=== PATIENT | male | born 1950 | race Caucasian/White ===

== ENCOUNTER 2019-07-07 09:54 | Day surgery (SDC) | payer OTHER ==
[~2019-07-07] VITALS: Ht 182.9 cm; Wt 104.3 kg
[~2019-07-07 09:54] MED LIST: CIPROFLOXACIN 0.3% OPHTH SOLUTION 5ML BOTTLE. OD ONE; LIDOCAINE 2% JELLY 6ML IN APPLICATOR. OD ONE; PROPARACAINE 0.5% OPHTH SOLUTION 15ML BOTTLE. OD ONE
[2019-07-07] MEDS: CYCLOPENTOLATE 1% OPTH SOLUTION 2ML BOTTLE. OD SCH ×3 (10:55→11:05)
[2019-07-07] MEDS: PHENYLEPHRINE 10% OPHTH SOLUTION 5ML BOTTLE. OD SCH ×3 (10:55→11:05)
[2019-07-07] MEDS ORDERED: IV RINGERS,LACTATED 1000ML 1,000 ML IV SCH ×2 (11:00→11:54)
[2019-07-07] MEDS ORDERED: MIDAZOLAM HCL/PF 2 MG/2 ML VIAL. ONE (11:34)
[2019-07-07] MEDS ORDERED: BACITRACIN/POLYMYXIN B OPHTH OINTMENT 3.5GM TUBE. ONE (11:38)
[2019-07-07] MEDS ORDERED: CHONDROITIN-SOD-HYALURONATE 0.5 ML DISP.SYRIN. ONE (11:38)
[2019-07-07] MEDS ORDERED: CHONDROIT-SOD-HYALURONATE KIT. ONE (11:38)
[2019-07-07] MEDS ORDERED: LIDOCAINE 1% PF 2 ML VIAL. ONE (11:38)
[2019-07-07] MEDS ORDERED: MORPHINE SULFATE 2 MG/ML VIAL. IV PRN (12:00)
[2019-07-07] MEDS ORDERED: PROCHLORPERAZINE 10 MG/2 ML VIAL. IV PRN (12:00)
[2019-07-07] MEDS ORDERED: HYDROmorphone 2 MG/ML VIAL IV PRN (12:00)
[2019-07-07] MEDS ORDERED: ONDANSETRON PF 4 MG/2 ML VIAL. IV PRN (12:00)
[2019-07-07] MEDS ORDERED: LIDOCAINE 1% PF 2 ML VIAL. ID PRN (12:00)
[2019-07-07] MEDS ORDERED: fentaNYL PF VIAL 100 MCG/2 ML VIAL IV PRN ×2 (12:00)
[2019-07-07 12:57] VITALS: BP 148/88
--- NOTE | 2019-07-07 13:22 | OP ---
DATE OF SURGERY: 07/07/2019 PREOPERATIVE DIAGNOSIS: Cataract of the right eye. PROCEDURE: Phacoemulsification with posterior chamber intraocular lens implantation of the right eye. SURGEON: Berenice Her MD ANESTHESIA: Topical with monitored anesthesia care. DESCRIPTION OF PROCEDURE: The right eye was prepped with Betadine in the usual sterile fashion and draped. A paracentesis was performed followed by instillation of preservative-free lidocaine admixed with balanced salt solution and phenylephrine. Viscoat was injected in the anterior chamber and a temporal clear corneal incision was made. A capsulorrhexis was performed followed by hydrodissection. The phacoemulsification handpiece was used to remove the nucleus in a modified stop and chop fashion. The I/A handpiece was used to remove the remainder of the cortex. Viscoelastic was injected in the anterior chamber and an Kel, model SN60WF with a power of 20.5 diopters was placed into the capsular bag. Balanced salt solution was used to hydrate the corneal wounds and the viscoelastic evacuated with the I/A handpiece. Once no leak was noted, Maxitrol was placed on the eye and the eye shielded and the patient was sent to the recovery room uneventfully. BERENICE HER MD DR: MARIA T/shreya JOB#: [id number] / [id number]
== END 2019-07-07 13:18 | disposition home or self-care (01) ==
LOC: SURG 09:54
PROVIDERS: ATTEND Ophthalmology
DX: H25.9 Unspecified age-related cataract (principal); I10 Essential (primary) hypertension; E78.00 Pure hypercholesterolemia, unspecified; E11.9 Type 2 diabetes mellitus without complications; E66.9 Obesity, unspecified; Z68.31 Body mass index [BMI] 31.0-31.9, adult; Z86.010 Personal history of colon polyps; Z87.39 Personal history of other diseases of the musculoskeletal system and connective tissue; Z96.1 Presence of intraocular lens; Z98.41 Cataract extraction status, right eye; Z98.52 Vasectomy status; Z72.89 Other problems related to lifestyle; Z79.84 Long term (current) use of oral hypoglycemic drugs
CPT/HCPCS: 66984; 82962; C1780; J0171; J0690; J1580; J2250

== ENCOUNTER 2019-07-14 09:46 | Day surgery (SDC) | payer OTHER ==
[~2019-07-14 09:46] MED LIST changes: -CIPROFLOXACIN 0.3% OPHTH SOLUTION 5ML BOTTLE. OD ONE; +CIPROFLOXACIN 0.3% OPHTH SOLUTION 5ML BOTTLE. OS ONE; +HYDROmorphone 2 MG/ML VIAL IV PRN; +IV RINGERS,LACTATED 1000ML 1,000 ML IV SCH; +LIDOCAINE 1% PF 2 ML VIAL. ID PRN; -LIDOCAINE 2% JELLY 6ML IN APPLICATOR. OD ONE; +LIDOCAINE 2% JELLY 6ML IN APPLICATOR. OS ONE; +MORPHINE SULFATE 2 MG/ML VIAL. IV PRN; +ONDANSETRON PF 4 MG/2 ML VIAL. IV PRN; +PROCHLORPERAZINE 10 MG/2 ML VIAL. IV PRN; -PROPARACAINE 0.5% OPHTH SOLUTION 15ML BOTTLE. OD ONE; +PROPARACAINE 0.5% OPHTH SOLUTION 15ML BOTTLE. OS ONE; +fentaNYL PF VIAL 100 MCG/2 ML VIAL IV PRN
[2019-07-14] MEDS ORDERED: INSULIN LISPRO 100 UNIT/ML 3ML VIAL for OP,RR ONLY. SQ PRN ×2 (10:30→10:45)
[2019-07-14] MEDS: PHENYLEPHRINE 10% OPHTH SOLUTION 5ML BOTTLE. OS SCH ×3 (10:46→10:53)
[2019-07-14] MEDS: CYCLOPENTOLATE 1% OPTH SOLUTION 2ML BOTTLE. OS SCH ×3 (10:46→10:53)
[2019-07-14] MEDS ORDERED: BACITRACIN/POLYMYXIN B OPHTH OINTMENT 3.5GM TUBE. ONE (10:55)
[2019-07-14] MEDS ORDERED: CHONDROIT-SOD-HYALURONATE KIT. ONE (10:55)
[2019-07-14] MEDS ORDERED: LIDOCAINE 1% PF 2 ML VIAL. ONE (10:55)
[2019-07-14] MEDS ORDERED: CHONDROITIN-SOD-HYALURONATE 0.5 ML DISP.SYRIN. ONE (10:56)
[2019-07-14] MEDS ORDERED: MIDAZOLAM HCL/PF 2 MG/2 ML VIAL. ONE (11:01)
[2019-07-14] MEDS ORDERED: ACET160O49 PO (11:25)
[2019-07-14] MEDS ORDERED: INSULIN LISPRO 100 UNIT/ML 3ML VIAL for OP,RR ONLY. SQ ONE (12:00)
[2019-07-14] MEDS ORDERED: EMPA25TA PO (12:17)
[2019-07-14] MEDS ORDERED: DULA1.5P SQ (12:17)
[2019-07-14] MEDS ORDERED: LISI-334 PO (12:18)
[2019-07-14] MEDS ORDERED: METF10007 PO (12:18)
[2019-07-14] MEDS ORDERED: SIMV40TA18 PO (12:19)
[2019-07-14 12:21] VITALS: BP 116/68
--- NOTE | 2019-07-14 12:37 | OP ---
DATE OF SURGERY: 07/14/2019 PREOPERATIVE DIAGNOSIS: Cataract of the left eye. PROCEDURE: Phacoemulsification with posterior chamber intraocular lens implantation of the left eye. INDICATION: Painless progressive visual loss and difficulty with night vision of the left eye. SURGEON: Arden Vasquez MD. ANESTHESIA: Topical with monitored anesthesia care. DESCRIPTION OF PROCEDURE: The left eye was prepped with Betadine in the usual sterile fashion and draped. A paracentesis was performed followed by instillation of preservative-free lidocaine admixed with balanced salt solution and phenylephrine. Viscoat was injected in the anterior chamber and a temporal clear corneal incision was made. A capsulorrhexis was performed followed by hydroexpression of the nucleus to the pupillary plane, which was sandwiched with Viscoat. The phacoemulsification handpiece was used to remove the nucleus and the I/A handpiece used to remove the cortex. Viscoelastic was injected in the capsular bag and an Kel, model SN60WF, with a power of 20.5 diopters was placed into the capsular bag. Balanced salt solution was used to hydrate the corneal wounds and the viscoelastic evacuated with the I/A handpiece. Once no leak was noted, Maxitrol was placed on the eye and the eye shielded and the patient was sent to the recovery room uneventfully. BERENICE KENNEDY MD DR: MRAIA T/shreya JOB#: [id number] / [id number]
== END 2019-07-14 13:00 | disposition home or self-care (01) ==
LOC: SURG 09:46 → EDUNIT# 12:00 → SURG 13:00
PROVIDERS: ATTEND Ophthalmology
DX: H25.12 Age-related nuclear cataract, left eye (principal); E11.36 Type 2 diabetes mellitus with diabetic cataract; H02.834 Dermatochalasis of left upper eyelid; H02.831 Dermatochalasis of right upper eyelid; N40.0 Benign prostatic hyperplasia without lower urinary tract symptoms; I10 Essential (primary) hypertension; M19.90 Unspecified osteoarthritis, unspecified site; Z83.518 Family history of other specified eye disorder; Z98.890 Other specified postprocedural states; Z79.899 Other long term (current) drug therapy; Z79.84 Long term (current) use of oral hypoglycemic drugs; Z79.82 Long term (current) use of aspirin
CPT/HCPCS: 66984; 82962; J0171; J0690; J1580; J1815; J2250; J3490; C1780